=== PATIENT | female | born 1960 | race Caucasian/White ===

== ENCOUNTER 2017-05-31 19:45 | Emergency (ER) | payer BC ==
[2017-05-31 19:53] VITALS: BP 155/93
[2017-05-31] MEDS ORDERED: Sodium Chloride 0.9% 10 ML Syringe FLUSH PRN (20:44)
[2017-05-31] MEDS ORDERED: Sodium Chloride 0.9% 1,000 ML IV ONE (20:44)
[2017-05-31] MEDS ORDERED: Ondansetron 4 MG/2 ML SDV IVPUSH ONE (20:44)
[2017-05-31] MEDS ORDERED: HYDROmorphone 0.5 MG/0.5 ML SYRINGE IVPUSH ONE (20:44)
--- NOTE | 2017-05-31 20:47 | EDM.PDOC ---
ED HPI GENERAL MEDICAL PROBLEM - General Chief Complaint: Abdominal Pain Stated Complaint: BACK HURTS/STOMACH PAIN Time Seen by Provider: 05/31/17 20:25 Source of Information: Reports: Patient History Limitations: Reports: No Limitations - History of Present Illness INITIAL COMMENTS - FREE TEXT/NARRATIVE: Patient is a 56 y/o female who presents to the E.D. complaining of generalized abdominal pain described as a crampy sensation with distention, n/v, and multiple episodes of diarrhea. Pain started yesterday and has been off and on until recently. She vomited once today. Last ate at 11 a.m. She has felt bloated. Had two bm's described as small and loose. No blood present with emesis or stool. Appetite is poor. She has no recent sick contact. No ingestion of bad or questionable food. No fever, cp, sob, alcohol use, dysuria, recent abx use, acid reflux, or any additional complaints. Treatments [employer]: Reports: NSAIDS Middle Abdomen Pain Score (Numeric/FACES): 8 - Related Data Allergies Allergy/AdvReac Type Severity Reaction Status Date / Time No Known Allergies Allergy Verified 05/07/15 23:55 Home Meds: Home Meds . [No Known Home Meds] 05/31/17 [History] Past Medical History HEENT History: Reports: Impaired Vision Gastrointestinal History: Reports: Hemorrhoids Oncologic (Cancer) History: Reports: Basal Cell Carcinoma - Past Surgical History HEENT Surgical History: Reports: Oral Surgery Other HEENT Surgeries/Procedures: wisdom teeth removal Female Surgical History: Reports: Tubal Ligation Social & Family History - Tobacco Use Smoking Status *Q: Never Smoker - Caffeine Use Caffeine Use: Reports: Coffee - Recreational Drug Use Recreational Drug Use: No ED ROS GENERAL - Review of Systems Review Of Systems: See Below Constitutional: Reports: Malaise, Weakness, Decreased Appetite. Denies: Fever HEENT: Reports: No Symptoms Respiratory: Reports: No Symptoms Cardiovascular: Reports: No Symptoms GI/Abdominal: Reports: Abdominal Pain, Diarrhea, Decreased Appetite, Nausea, Vomiting. Denies: Black Stool, Bloody Stool, Constipation, Hematemesis, Hematochezia, Melena : Reports: No Symptoms Musculoskeletal: Reports: Back Pain (Low back pain) Skin: Reports: No Symptoms Neurological: Reports: No Symptoms ED EXAM, GI/ABD - Physical Exam Exam: See Below Exam Limited By: No Limitations General Appearance: Alert, WD/WN, Moderate Distress Ears: Hearing Grossly Normal Nose: Normal Inspection Throat/Mouth: Normal Inspection, Normal Oropharynx, Normal Voice, No Airway Compromise Neck: Normal Inspection, Supple Respiratory/Chest: No Respiratory Distress, Lungs Clear, Normal Breath Sounds, No Accessory Muscle Use, Chest Non-Tender Cardiovascular: Normal Peripheral Pulses, Regular Rate, Rhythm GI/Abdominal Exam: Normal Bowel Sounds, Soft, No Organomegaly, Distended, Tender (mild tenderness to the periumbilical region. ), Other (Negative Anderson sign. Negative McBurney's point.) Back Exam: Normal Inspection. No: CVA Tenderness (L), CVA Tenderness (R) Extremities: Normal Inspection, Non-Tender, No Pedal Edema Neurological: Alert, Oriented, CN II-XII Intact, Normal Cognition, No Motor/ Sensory Deficits Psychiatric: Normal Affect, Normal Mood Skin Exam: Warm, Dry, Intact, Normal Color, No Rash Course - Vital Signs Last Recorded V/S: Last Vital Signs Temp 98.3 F 05/31/17 19:50 Pulse 75 05/31/17 19:50 Resp 19 05/31/17 19:50 BP 155/93 H 05/31/17 19:50 Pulse Ox 99 05/31/17 19:50 - Orders/Labs/Meds Orders: Active Orders 24 hr Category Date Time Status Peripheral IV Care [RC] . DIRECTED Care 05/31/17 20:44 Active Peripheral IV Insertion Adult [OM.PC] Routine Oth 05/31/17 20:44 Ordered Labs: Laboratory Tests 05/31/17 05/31/17 05/31/17 Range/Units 20:37 21:18 21:18 WBC 17.01 H (3.98-10.04) K/mm3 RBC 4.60 (3.98-5.22) M/mm3 Hgb 13.3 (11.2-15.7) gm/L Hct 40.6 (34.1-44.9) % MCV 88.3 (79.4-94.8) fl MCH 28.9 (25.6-32.2) pg MCHC 32.8 (32.2-35.5) g/dl RDW Std Deviation 49.5 H (36.4-46.3) fL Plt Count 530 H (182-369) K/mm3 MPV 8.7 L (9.4-12.3) fl Neutrophils % (Manual) 87 H (40-60) % Band Neutrophils % 0 (0-10) % Lymphocytes % (Manual) 11 L (20-40) % Atypical Lymphs % 0 % Monocytes % (Manual) 2 (2-10) % Eosinophils % (Manual) 0 L (0.7-5.8) % Basophils % (Manual) 0 L (0.1-1.2) Platelet Estimate Increased Plt Morphology Comment See note RBC Morph Comment Normal Sodium 139 (136-145) mEq/L Potassium 4.0 (3.5-5.1) mEq/L Chloride 105 (98-107) mEq/L Carbon Dioxide 25 (21-32) mEq/L Anion Gap 13.0 (5-15) BUN 10 (7-18) mg/dL Creatinine 0.8 (0.55-1.02) mg/dL Est Cr Clr Drug Dosing 58.55 mL/min Estimated GFR (MDRD) > 60 (>60) mL/min BUN/Creatinine Ratio 12.5 L (14-18) Glucose 125 H (74-106) mg/dL Calcium 8.9 (8.5-10.1) mg/dL Total Bilirubin 1.2 H (0.2-1.0) mg/dL AST 274 H (15-37) U/L ALT 221 H (14-59) U/L Alkaline Phosphatase 80 (46-116) U/L C-Reactive Protein (<1.0) mg/dL Total Protein 7.4 (6.4-8.2) g/dl Albumin 4.1 (3.4-5.0) g/dl Globulin 3.3 gm/dL Albumin/Globulin Ratio 1.2 (1-2) Lipase 321 (73-393) U/L Urine Color Yellow (Yellow) Urine Appearance Slt cloudy H (Clear) Urine pH 7.5 (5.0-8.0) Ur Specific [place] 1.020 (1.005-1.030) Urine Protein 1+ H (Negative) Urine Glucose (UA) Negative (Negative) Urine Ketones 2+ H (Negative) Urine Occult Blood Trace-intact H (Negative) Urine Nitrite Negative (Negative) Urine Bilirubin Negative (Negative) Urine Urobilinogen 0.2 (0.2-1.0) Ur Leukocyte Esterase Negative (Negative) Urine RBC 5-10 H (0-5) /hpf Urine WBC 0-5 (0-5) /hpf Ur Epithelial Cells 5-10 H (0-5) /hpf Amorphous Sediment Many H (NOT SEEN) /hpf Urine Bacteria Moderate H (FEW) /hpf Urine Mucus Not seen (FEW) /hpf 05/31/17 Range/Units 21:18 WBC (3.98-10.04) K/mm3 RBC (3.98-5.22) M/mm3 Hgb (11.2-15.7) gm/L Hct (34.1-44.9) % MCV (79.4-94.8) fl MCH (25.6-32.2) pg MCHC (32.2-35.5) g/dl RDW Std Deviation (36.4-46.3) fL Plt Count (182-369) K/mm3 MPV (9.4-12.3) fl Neutrophils % (Manual) (40-60) % Band Neutrophils % (0-10) % Lymphocytes % (Manual) (20-40) % Atypical Lymphs % % Monocytes % (Manual) (2-10) % Eosinophils % (Manual) (0.7-5.8) % Basophils % (Manual) (0.1-1.2) Platelet Estimate Plt Morphology Comment RBC Morph Comment Sodium (136-145) mEq/L Potassium (3.5-5.1) mEq/L Chloride (98-107) mEq/L Carbon Dioxide (21-32) mEq/L Anion Gap (5-15) BUN (7-18) mg/dL Creatinine (0.55-1.02) mg/dL Est Cr Clr Drug Dosing mL/min Estimated GFR (MDRD) (>60) mL/min BUN/Creatinine Ratio (14-18) Glucose (74-106) mg/dL Calcium (8.5-10.1) mg/dL Total Bilirubin (0.2-1.0) mg/dL AST (15-37) U/L ALT (14-59) U/L Alkaline Phosphatase (46-116) U/L C-Reactive Protein 0.6 (<1.0) mg/dL Total Protein (6.4-8.2) g/dl Albumin (3.4-5.0) g/dl Globulin gm/dL Albumin/Globulin Ratio (1-2) Lipase (73-393) U/L Urine Color (Yellow) Urine Appearance (Clear) Urine pH (5.0-8.0) Ur Specific [place] (1.005-1.030) Urine Protein (Negative) Urine Glucose (UA) (Negative) Urine Ketones (Negative) Urine Occult Blood (Negative) Urine Nitrite (Negative) Urine Bilirubin (Negative) Urine Urobilinogen (0.2-1.0) Ur Leukocyte Esterase (Negative) Urine RBC (0-5) /hpf Urine WBC (0-5) /hpf Ur Epithelial Cells (0-5) /hpf Amorphous Sediment (NOT SEEN) /hpf Urine Bacteria (FEW) /hpf Urine Mucus (FEW) /hpf Meds: Medications Discontinued Medications Generic Name Dose Route Start Last Admin Trade Name Freq PRN Reason Stop Dose Admin Hydromorphone HCl 0.5 mg 05/31/17 20:44 05/31/17 21:20 Dilaudid IVPUSH 05/31/17 20:45 0.5 mg ONETIME ONE Administration Sodium Chloride 1,000 mls @ 999 mls/hr 05/31/17 20:44 05/31/17 21:19 Normal Saline IV 05/31/17 21:44 999 mls/hr ONETIME ONE Administration Ondansetron HCl 4 mg 05/31/17 20:44 05/31/17 21:20 Zofran IVPUSH 05/31/17 20:45 4 mg ONETIME ONE Administration Sodium Chloride 10 ml 05/31/17 20:44 05/31/17 21:20 Saline Flush FLUSH 10 ml ASDIRECTED PRN Administration Keep Vein Open - Re-Assessments/Exams Free Text/Narrative Re-Assessment/Exam: IV established with normal saline 1 L bolus, Dilaudid 0.5 mg IVP, and Zofran 4 mg IVP. Initial lab studies will include CBC, chem 14, CRP, lipase, UA, an x-ray of the abdomen two-view. Reviewed abdominal x-ray with Dr. Good. Nonspecific air and stool pattern. No acute findings. Final interpretation pending. Labs reviewed: White blood count 17.01, platelet count 5:30, neutrophil percentage is 87 with no left shift. Sodium 130, potassium 4.0, AG 13.0, creatinine 0.8, AST and ALT are both elevated. CRP 0.6. Lipase 321. 05/31/17 2200 Reassessment, patient has no complaints at this time. She has no abdominal pain with examination. Patient denies any excessive Tylenol or alcohol use. She does not drink alcohol on a regular basis. I did speak to the patient about obtaining further imaging/studies. Patient is pain-free at this time. Do not see the need. Suspect etiology is gastroenteritis which will resolve on its own accord. Will discharge patient home with prescription for Zofran and instructions as documented once IVF fluids are completed. Departure - Departure Time of Disposition: 22:28 Disposition: Home, Self-Care 01 Condition: Good Clinical Impression: Gastroenteritis - Discharge Information Instructions: Viral Gastroenteritis, Adult, [id number], Nausea and Vomiting, Adult, [id number], Abdominal Pain, Adult, [id number] Referrals: [place] QUANTITATIVE MANAGER [Primary Care Provider] - Forms: ED Department Discharge, ED Return to Work/School Form Additional Instructions: As discussed suspect he had gastroenteritis. Etiology is viral and will run its course of the next few days. Treatment is symptomatic care. Push the fluids Gatorade, Powerade, and/or Pedialyte. Refrain from fruit juices, dairy products , raw fruits/vegetables, spicy foods, or any other aggravating items. Once diarrhea and nausea subside may advance to a bland diet and then to normal diet thereafter as tolerated. Take the Zofran 1 tablet every 6 hours as needed for nausea and vomiting. Follow-up with PCP first part of next week if symptoms persist. Return to the ED if you develop any new or worsening symptoms. - My Orders Last 24 Hours: My Active Orders 05/31/17 20:44 Peripheral IV Care [RC] . DIRECTED Peripheral IV Insertion Adult [OM.PC] Routine - Assessment/Plan Last 24 Hours: My Active Orders 05/31/17 20:44 Peripheral IV Care [RC] . DIRECTED Peripheral IV Insertion Adult [OM.PC] Routine
--- NOTE | 2017-06-01 08:45 | CR ---
Abdomen: Supine and upright views of the abdomen were obtained. Comparison: No prior abdominal x-ray, previous CT abdomen and pelvis study of 06/24/15 is available. Bowel gas pattern is normal. Phleboliths are seen within the pelvis. Bony structure show slight scoliosis within the spine. No free air is identified. No soft tissue abnormality is appreciated. Impression: 1. Incidental findings. Diagnostic code #2
== END 2017-05-31 22:45 | disposition home or self-care (01) ==
LOC: JD.ED 19:45
DX: K52.9 Noninfective gastroenteritis and colitis, unspecified (principal)
CPT/HCPCS: 36415; 74019; 80053; 81001; 83690; 85025; 86140; 96361; 96374; 96375; 99284; J1170; J2405; J7040; J7050

== ENCOUNTER 2023-04-12 23:27 | Emergency (ER) | payer BC ==
[2023-04-12] MEDS ORDERED: Dextrose 5%-0.9% NaCl 1,000 ML IV SCH (23:45)
[2023-04-12] MEDS ORDERED: Metoclopramide 10 MG/2 ML SDV IVPUSH ONE (23:59)
[2023-04-13 00:04] LABS: APPEARANCE,URINE CLEAR (Clear); BILIRUBIN,URINE 1+ (Negative); COLOR,URINE YELLOW (Yellow); GLUCOSE,URINE NEGATIVE (Negative); KETONES,URINE 1+ (Negative); LEUKOCYTE ESTERASE,URINE NEGATIVE (Negative); NITRITE,URINE NEGATIVE (Negative); OCCULT BLOOD,URINE TRACE-LYSED (Negative); PH,URINE 5.5 (5.0-8.0); PROTEIN,URINE TRACE (Negative); UROBILINOGEN,URINE 0.2 (0.2-1.0)
[2023-04-13 00:16] LABS: BACTERIA,URINE MODERATE /hpf (FEW); EPITHELIAL CELLS,URINE 0-5 /hpf (0-5); RBC,URINE 0-5 /hpf (0-5); WBC,URINE 0-5 /hpf (0-5)
[2023-04-13 00:17] LABS: MUCUS,URINE MODERATE /hpf (FEW)
[2023-04-13 00:39] LABS: BASOPHILS PERCENT AUTO 0.3 % (0.0-1.0); EOSINOPHILS PERCENT AUTO 0.4 % (0.0-6.0); HEMATOCRIT 35.9 % (37.0-47.0); IMMATURE GRAN ABSOLUTE AUTO 0.03 K/mm3 (0.00-0.05); IMMATURE GRAN PERCENT AUTO 0.3 % (0.0-0.4); LYMPHOCYTES ABSOLUTE AUTO 1.1 K/mm3 (1.0-4.8); LYMPHOCYTES PERCENT AUTO 9.7 % (24.0-44.0); MEAN CORPUSCULAR HEMOGLOBIN 28.5 pg (28.0-32.0); MEAN CORPUSCULAR HGB CONC 33.4 g/dl (32.0-36.0); MEAN CORPUSCULAR VOLUME 85.3 fl (83.0-99.0); MEAN PLATELET VOLUME 9.2 fl (9.4-12.3); MONOCYTES ABSOLUTE AUTO 0.5 K/mm3 (0.0-0.8); MONOCYTES PERCENT AUTO 4.1 % (0.0-8.0); NEUTROPHILS ABSOLUTE AUTO 9.7 K/mm3 (1.8-7.7); NEUTROPHILS PERCENT AUTO 85.2 % (41.0-71.0); PLATELET COUNT,PLT 241 K/mm3 (150-400); RED BLOOD CELL COUNT 4.21 M/mm3 (4.10-5.30); WHITE BLOOD CELL COUNT,WBC 11.39 K/mm3 (3.9-11.3)
[2023-04-13] MEDS ORDERED: Iopamidol 612 MG/ML 100 ML Bottle IVPUSH ONE (00:48)
[2023-04-13 00:57] LABS: INR 0.96; PROTHROMBIN TIME 10.3 SECONDS (9.7-12.0)
[2023-04-13 00:58] LABS: PTT,PARTIAL THROMBOPLSTIN TIME < 20.0 SECONDS (21.7-31.4)
[2023-04-13] MEDS ORDERED: Iopamidol 612 MG/ML 30 ML SDV IVPUSH ONE (00:59)
[2023-04-13] MEDS ORDERED: Sodium Chloride 0.9% 100 ML IV SCH (01:00)
[2023-04-13 01:08] LABS: ALBUMIN 4.1 g/dl (3.4-5.0); BILIRUBIN TOTAL 0.5 mg/dL (0.2-1.0); BUN/CREATININE RATIO 18.5 (14-18); C-REACTIVE PROTEIN 1.3 mg/dL (<1.0); CALCIUM 9.2 mg/dL (8.5-10.1); CREATININE 1.3 mg/dL (0.55-1.02); EST CRCL DRUG DOSING (CG) 33.42 mL/min; PROTEIN TOTAL,TP 8.2 g/dl (6.4-8.2)
[2023-04-13] MEDS ORDERED: Heparin Sodium 5,000 Units/ML Vial IVPUSH ONE (01:59)
[2023-04-13] MEDS ORDERED: Heparin Sodium/D5W 25,000 UNITS/500 ML BAG IV SCH (02:00)
[2023-04-13] MEDS ORDERED: Metoclopramide 10 MG/2 ML SDV IVPUSH ONE (02:39)
[2023-04-13] MEDS ORDERED: HYDROmorphone 0.5 MG/0.5 ML Syringe IVPUSH ONE ×2 (02:39)
[2023-04-13] MEDS ORDERED: Alum Hydrox/Mag Hydrox/Simeth 30 ML, Lidocaine 2% 15 ML PO ONE ×2 (02:56)
[2023-04-13 03:41] VITALS: BP 156/82; PULSE 87
== END 2023-04-13 03:15 | disposition home or self-care (01) ==
LOC: JD.ED 23:27
DX: I70.1 Atherosclerosis of renal artery (principal); E87.21 Acute metabolic acidosis; E86.9 Volume depletion, unspecified; I10 Essential (primary) hypertension
CPT/HCPCS: 36415; 74175; 80053; 81001; 83605; 83735; 83880; 84484; 85025; 85610; 85730; 86140; 87040; 93005; 96361; 96365; 96375; 96376; 99284; J1170; J1644; J2765; J3490; J7042; Q9967; 93010

== ENCOUNTER 2023-08-10 15:44 | Emergency (ER) | payer BC ==
[2023-08-10 16:16] LABS: BASOPHILS PERCENT AUTO 0.3 % (0.0-1.0); EOSINOPHILS ABSOLUTE AUTO 0.2 K/mm3 (0.0-0.4); EOSINOPHILS PERCENT AUTO 2.1 % (0.0-6.0); HEMATOCRIT 37.3 % (37.0-47.0); HEMOGLOBIN 12.4 gm/dl (12.0-16.0); IMMATURE GRAN ABSOLUTE AUTO 0.05 K/mm3 (0.00-0.05); IMMATURE GRAN PERCENT AUTO 0.6 % (0.0-0.4); LYMPHOCYTES ABSOLUTE AUTO 1.6 K/mm3 (1.0-4.8); LYMPHOCYTES PERCENT AUTO 17.3 % (24.0-44.0); MEAN CORPUSCULAR HEMOGLOBIN 27.9 pg (28.0-32.0); MEAN CORPUSCULAR HGB CONC 33.2 g/dl (32.0-36.0); MEAN PLATELET VOLUME 8.9 fl (9.4-12.3); MONOCYTES ABSOLUTE AUTO 0.7 K/mm3 (0.0-0.8); MONOCYTES PERCENT AUTO 7.4 % (0.0-8.0); NEUTROPHILS ABSOLUTE AUTO 6.5 K/mm3 (1.8-7.7); NEUTROPHILS PERCENT AUTO 72.3 % (41.0-71.0); PLATELET COUNT,PLT 262 K/mm3 (150-400); RED BLOOD CELL COUNT 4.44 M/mm3 (4.10-5.30); WHITE BLOOD CELL COUNT,WBC 9.05 K/mm3 (3.9-11.3)
[2023-08-10] MEDS: Iopamidol 755 Mg/ML 100 ML Bottle IVPUSH ONE (16:24)
[2023-08-10] MEDS: Sodium Chloride 0.9% 100 ML IV SCH (16:24)
[2023-08-10] MEDS: Sodium Chloride 0.9% 10 ML Syringe FLUSH ONE (16:24)
[2023-08-10 16:40] LABS: A/G RATIO 1.2 (1-2); ALANINE AMINOTRANSFERASE,ALT 29 U/L (14-59); ALBUMIN 4.3 g/dl (3.4-5.0); ALKALINE PHOSPHATASE 88 U/L (46-116); ANION GAP 13.7 (5-15); ASPARTATE AMNIOTRANSFERASE,AST 17 U/L (15-37); BILIRUBIN TOTAL 0.6 mg/dL (0.2-1.0); BLOOD UREA NITROGEN,BUN 23 mg/dL (7-18); BUN/CREATININE RATIO 16.4 (14-18); CALCIUM 9.3 mg/dL (8.5-10.1); CARBON DIOXIDE,CO2 27 mEq/L (21-32); CHLORIDE,CL 103 mEq/L (98-107); CREATININE 1.4 mg/dL (0.55-1.02); EST CRCL DRUG DOSING (CG) 31.04 mL/min; ESTIMATED GFR 42 mL/min (>60); GLUCOSE RANDOM 125 mg/dL (70-99); POTASSIUM,K 3.7 mEq/L (3.5-5.1); PROTEIN TOTAL,TP 7.9 g/dl (6.4-8.2); SODIUM,NA 140 mEq/L (136-145)
[2023-08-10 16:46] LABS: TROPONIN I HIGH SENSITIVITY < 4 pg/mL (<=51)
[2023-08-10] MEDS: Sodium Chloride 0.9% 1,000 ML IV ONE (17:29)
[2023-08-10 18:23] VITALS: BP 142/69; PULSE 82
== END 2023-08-10 19:00 | disposition home or self-care (01) ==
LOC: JD.ED 15:44
DX: R55 Syncope and collapse (principal); I10 Essential (primary) hypertension; M19.90 Unspecified osteoarthritis, unspecified site; Z79.02 Long term (current) use of antithrombotics/antiplatelets; Z79.82 Long term (current) use of aspirin; Z79.899 Other long term (current) drug therapy
CPT/HCPCS: 36415; 70450; 70496; 70498; 80053; 82947; 84484; 85025; 85730; 96360; 99284; J3490; J7030; Q9967; 99283

== ENCOUNTER 2023-12-07 18:14 | Emergency (ER) | payer BC ==
[2023-12-07 18:30] VITALS: PULSE 99
[2023-12-07] MEDS ORDERED: Sodium Chloride 0.9% 10 ML Syringe FLUSH PRN (18:44)
[2023-12-07 19:46] LABS: C-REACTIVE PROTEIN 4.47 mg/dL (<0.30)
[2023-12-07] MEDS: Sodium Chloride 0.9% 1,000 ML IV SCH (20:28)
[2023-12-07] MEDS: Potassium Chloride 10 MEQ in Premix Bag 1 BAG IV SCH (20:29)
[2023-12-07 22:39] LABS: ANION GAP 16.1 (5-15); BUN/CREATININE RATIO 17.6 (14-18); CALCIUM 8.6 mg/dL (8.5-10.1); CREATININE 1.7 mg/dL (0.55-1.02); EST CRCL DRUG DOSING (CG) 25.23 mL/min; POTASSIUM,K 3.1 mEq/L (3.5-5.1)
[2023-12-08 01:46] VITALS: BP 126/85
== END 2023-12-08 01:26 | disposition home or self-care (01) ==
LOC: JD.ED 18:14
DX: M54.50 Low back pain, unspecified (principal); E87.6 Hypokalemia; R74.8 Abnormal levels of other serum enzymes; I10 Essential (primary) hypertension; E78.00 Pure hypercholesterolemia, unspecified; Z86.16 Personal history of COVID-19; Z79.82 Long term (current) use of aspirin; Z79.899 Other long term (current) drug therapy
CPT/HCPCS: 36415; 74176; 80048; 83690; 83735; 84484; 86140; 93005; 96365; 96366; 99284; J3480; J7030